=== PATIENT | female | born 2000 | race Caucasian/White ===

== ENCOUNTER 2023-01-30 00:53 | Emergency (ER) | payer BC ==
[2023-01-30] MEDS ORDERED: Ondansetron 4 MG/2 ML SDV IVPUSH ONE (02:06)
[2023-01-30] MEDS ORDERED: Sodium Chloride 0.9% 2.5 ML Syringe FLUSH PRN (02:06)
[2023-01-30] MEDS ORDERED: Sodium Chloride 0.9% 10 ML Syringe FLUSH PRN (02:06)
[2023-01-30] MEDS ORDERED: Lactated Ringers 1,000 ML IV SCH ×2 (02:15)
[2023-01-30 02:34] LABS: BASOPHILS ABSOLUTE AUTO 0.03 K/uL (0.00-0.20); BASOPHILS PERCENT AUTO 0.4 % (0.0-1.0); EOSINOPHILS ABSOLUTE AUTO 0.09 K/uL (0.00-0.45); EOSINOPHILS PERCENT AUTO 1.1 % (0.0-6.0); HEMATOCRIT 38.8 % (37.0-47.0); HEMOGLOBIN 13.3 g/dL (12.0-16.0); LYMPHOCYTES ABSOLUTE AUTO 1.51 K/uL (1.00-4.80); LYMPHOCYTES PERCENT AUTO 18.4 % (24.0-44.0); MEAN CORPUSCULAR HEMOGLOBIN 27.8 pg (28.0-32.0); MEAN CORPUSCULAR HGB CONC 34.3 g/dL (32.0-36.0); MEAN CORPUSCULAR VOLUME 81.2 fL (83.0-99.0); MEAN PLATELET VOLUME 11.3 fL (9.4-12.3); MONOCYTES PERCENT AUTO 6.1 % (0.0-8.0); NEUTROPHILS ABSOLUTE AUTO 6.1 K/uL (1.8-7.7); NEUTROPHILS PERCENT AUTO 73.6 % (41.0-71.0); PLATELET COUNT,PLT 242 K/uL (150-400); RED BLOOD CELL COUNT 4.78 M/uL (4.10-5.30); WHITE BLOOD CELL COUNT,WBC 8.22 K/uL (3.9-11.3)
[2023-01-30 03:09] LABS: A/G RATIO 0.8 (0.9-1.6); ALBUMIN 3.7 g/dL (3.4-5.0); BILIRUBIN TOTAL 0.3 mg/dL (0.2-1.0); CALCIUM 9.3 mg/dL (8.5-10.1); CARBON DIOXIDE,CO2 23.7 mmol/L (21.0-32.0); CREATININE 0.7 mg/dL (0.6-1.0); EST CRCL DRUG DOSING (CG) 108.86 mL/min; MAGNESIUM 2.2 mg/dL (1.8-2.4); POTASSIUM,K 3.3 mmol/L (3.5-5.1); PROTEIN TOTAL,TP 8.3 g/dL (6.4-8.2); TSH ULTRASENSITIVE 6.36 uIU/mL (0.36-3.74)
[2023-01-30 03:26] LABS: T4 FREE 1.02 ng/dL (0.76-1.46)
[2023-01-30 03:33] LABS: APPEARANCE,URINE CLEAR; BILIRUBIN,URINE NEGATIVE (NEGATIVE); COLOR,URINE YELLOW; GLUCOSE,URINE NEGATIVE (NEGATIVE); KETONES,URINE NEGATIVE (NEGATIVE); LEUKOCYTE ESTERASE,URINE SMALL (NEGATIVE); NITRITE,URINE NEGATIVE (NEGATIVE); OCCULT BLOOD,URINE NEGATIVE (NEGATIVE); PROTEIN,URINE NEGATIVE (NEGATIVE); UROBILINOGEN,URINE 0.2 EU/dL (<2.0)
[2023-01-30 03:45] LABS: BACTERIA,URINE FEW (NEGATIVE); EPITHELIAL CELLS,URINE FEW (NONE-FEW); MUCUS,URINE LIGHT (NONE-MOD); RBC,URINE 0-2 (0-2/HPF)
== END 2023-01-30 05:38 | disposition home or self-care (01) ==
LOC: MW.ED 00:53
DX: O21.9 Vomiting of pregnancy, unspecified (principal); Z3A.08 8 weeks gestation of pregnancy
CPT/HCPCS: 36415; 76815; 80053; 81001; 83690; 83735; 84439; 84443; 84702; 85025; 87086; 96361; 96374; 99284; J2405; J3490; J7120

== ENCOUNTER 2023-02-12 20:23 | Emergency (ER) | payer BC ==
[2023-02-12] MEDS ORDERED: Lactated Ringers 1,000 ML IV ONE (22:07)
[2023-02-12] MEDS ORDERED: Metoclopramide 10 MG/2 ML SDV IVPUSH ONE (22:07)
[2023-02-12 22:21] LABS: BASOPHILS ABSOLUTE AUTO 0.02 K/uL (0.00-0.20); BASOPHILS PERCENT AUTO 0.2 % (0.0-1.0); EOSINOPHILS ABSOLUTE AUTO 0.02 K/uL (0.00-0.45); EOSINOPHILS PERCENT AUTO 0.2 % (0.0-6.0); HEMATOCRIT 38.8 % (37.0-47.0); HEMOGLOBIN 13.5 g/dL (12.0-16.0); IMMATURE GRAN ABSOLUTE AUTO 0.03 K/uL (0.00-0.05); IMMATURE GRAN PERCENT AUTO 0.4 % (0.0-0.4); LYMPHOCYTES PERCENT AUTO 17.2 % (24.0-44.0); MEAN CORPUSCULAR HEMOGLOBIN 27.7 pg (28.0-32.0); MEAN CORPUSCULAR HGB CONC 34.8 g/dL (32.0-36.0); MEAN CORPUSCULAR VOLUME 79.5 fL (83.0-99.0); MEAN PLATELET VOLUME 11.3 fL (9.4-12.3); MONOCYTES ABSOLUTE AUTO 0.54 K/uL (0.00-0.80); MONOCYTES PERCENT AUTO 6.6 % (0.0-8.0); NEUTROPHILS ABSOLUTE AUTO 6.13 K/uL (1.80-7.70); NEUTROPHILS PERCENT AUTO 75.4 % (41.0-71.0); PLATELET COUNT,PLT 250 K/uL (150-400); RED BLOOD CELL COUNT 4.88 M/uL (4.10-5.30); WHITE BLOOD CELL COUNT,WBC 8.14 K/uL (3.9-11.3)
[2023-02-12 22:39] LABS: CALCIUM 9.2 mg/dL (8.5-10.1); CARBON DIOXIDE,CO2 20.4 mmol/L (21.0-32.0); CREATININE 0.8 mg/dL (0.6-1.0); EST CRCL DRUG DOSING (CG) 95.25 mL/min; POTASSIUM,K 3.5 mmol/L (3.5-5.1)
[2023-02-12 23:07] LABS: BILIRUBIN,URINE NEGATIVE (NEGATIVE); COLOR,URINE YELLOW; GLUCOSE,URINE NEGATIVE (NEGATIVE); KETONES,URINE >=80 mg/dL (NEGATIVE); LEUKOCYTE ESTERASE,URINE NEGATIVE (NEGATIVE); NITRITE,URINE NEGATIVE (NEGATIVE); OCCULT BLOOD,URINE NEGATIVE (NEGATIVE); PROTEIN,URINE 30 mg/dL (NEGATIVE); UROBILINOGEN,URINE 0.2 EU/dL (<2.0)
[2023-02-12 23:08] LABS: APPEARANCE,URINE HAZY
[2023-02-12] MEDS ORDERED: Dextrose 5%-Lactated Ringers 1,000 ML IV SCH (23:15)
[2023-02-12 23:24] LABS: BACTERIA,URINE 1+ (NEGATIVE); EPITHELIAL CELLS,URINE FEW (NONE-FEW); MUCUS,URINE MODERATE (NONE-MOD); RBC,URINE 0-2 (0-2/HPF); WBC,URINE 0-3 (0-5/HPF)
== END 2023-02-13 02:16 | disposition home or self-care (01) ==
LOC: MW.ED 20:23
DX: O21.0 Mild hyperemesis gravidarum (principal); Z3A.09 9 weeks gestation of pregnancy
CPT/HCPCS: 36415; 80048; 81001; 85025; 96361; 96374; 99284; J2765; J7120; J7121